=== PATIENT | female | born 1980 | race Two or more races ===

== ENCOUNTER 2019-06-18 15:38 | Emergency (ER) | payer OTHER ==
[~2019-06-18] VITALS: Ht 162.6 cm; Wt 163.3 kg
[2019-06-18] MEDS ORDERED: ENALAPRIL MALEA10 MG (15:49)
[2019-06-18] MEDS ORDERED: SYNTHROID88 MCG (15:49)
== END 2019-06-18 20:07 | disposition home or self-care (01) ==
LOC: ER 15:38
DX: K52.89 Other specified noninfective gastroenteritis and colitis (principal)